=== PATIENT | male | born 1945 | race Caucasian/White ===

== ENCOUNTER 2018-04-12 16:17 | Emergency (ER) | payer OTHER ==
[2018-04-12] MEDS ORDERED: TDAP ADULT 0.5 ML INJ (BOOSTRIX) IM ONE (16:51)
--- NOTE | 2018-04-12 17:49 | EDPHY ---
H & P Time Seen by Provider: 04/12/18 16:25 HPI/ROS: HPI Right forearm laceration. 73-year-old male by private vehicle. He is right-hand dominant. He was coming down from a step ladder while helping his friend having an [place] flag. He slipped and his arm got caught on a sharp edge of the ladder. He suffered an elliptical skin tear type laceration to the mid ventral forearm. He cannot remember the last time he had a tetanus shot. He describes elapsed duration is superficial. No distal weakness or loss of sensation. He did not hit his head. No neck pain. No extremity pain. No other complaint. ROS: Constitutional: No fever, no chills. No weakness. Musculoskeletal: No back pain. No neck pain. As above. Skin: As above. Neurological: No headache. No focal weakness or altered sensation. Past medical history: Hypertension. Social history: Nonsmoker. Here by himself. No alcohol. Physical Exam: General Appearance: Alert, no distress. This patient is responding to questions appropriately and in full sentences. This patient appears well- hydrated and well-nourished. Head: Normocephalic atraumatic. Eyes: Pupils equal and round no pallor or injection. No lid edema, erythema or injection. Right upper extremity exam: Significant for a 6 cm elliptical laceration/skin tear to the fascial but not deeper, mid ventral right forearm. There is macerated skin and subcutaneous tissue as well as some skin loss. The flexor digitorum superficialis and flexor digitorum profundus tendon function is intact. Please see wound care note for further details. The right upper extremity is neurovascularly intact. Neurological: Motor sensory function is grossly intact. Cranial nerves are normal. Gait is normal. Skin: Warm and dry, no rashes. As above. Extremities are symmetrical. All joints range without pain or impingement. Psychiatric: No agitation. No depression. Database: EKG: Imaging: Procedures: Procedure: Laceration repair. Verbal consent was obtained from the patient. The 6 sent laceration on the right ventral mid forearm was anesthetized in the usual fashion. The wound was irrigated, draped and explored to its base with a gloved finger. There were no deep structures involved. No tendon injury was identified. No foreign body was identified. The wound was repaired with 13, 4.0 Ethilon sutures placed in interrupted fashion. The wound repair was tolerated well and there were no complications. The procedure was performed by myself. Emergency department course: The patient was administered Boostrix. Vital signs reviewed. After suture repair, wound care was discussed. Follow-up and return to emergency department precautions reviewed. Infection precautions reviewed. All of his questions were answered. He was discharged in good condition. Differential Diagnosis: The differential diagnosis on this patient includes but is not limited to isolated right ventral mid forearm laceration and skin tear. Tendon laceration , significant neurovascular injury, retained foreign body unlikely. This represents a partial list of diagnoses considered. These considerations are based on history, physical exam, past history, reassessment and diagnostic testing. Smoking Status: Never smoked Constitutional: Initial Vital Signs Temperature (C) 36.5 C 04/12/18 16:21 Heart Rate 78 04/12/18 16:21 Respiratory Rate 16 04/12/18 16:21 Blood Pressure 154/85 H 04/12/18 16:21 O2 Sat (%) 97 04/12/18 16:21 O2 Delivery Mode Room Air Allergies/Adverse Reactions: No Known Allergies Allergy (Unverified 04/12/18 16:19) Home Medications: Medication Instructions Recorded Coar 04/12/18 Medical Decision Making - Data Points Medications Given: Discontinued Medications Diphtheria/Tetanus/Acell Pertussis (Boostrix) 0.5 ml IM .ONCE ONE Stop: 04/12/18 16:52 Last Admin: 04/12/18 16:57 Dose: 0.5 ml Departure - Departure Disposition: Home, Routine, Self-Care Clinical Impression: Laceration of right forearm Condition: Good Instructions: Laceration (ED), Care For Your Stitches (ED) Additional Instructions: Read and follow provided instructions. Sutures are to be removed in 12-14 days. You can come back here to have that done. Follow-up with your primary care physician in 3 days for re-evaluation and wound check. Ibuprofen dosin mg every 6 hours with meals for the next 3 days only. Take only as needed for pain. Return to the emergency department for discoloration of the wound area, worsening pain, redness or swelling, any drainage of pus or other serious concerns. Referrals: Nirmal Espinoza MD [Primary Care Provider] - As per Instructions
[2018-04-12 18:06] VITALS: BP 146/81
== END 2018-04-12 18:05 | disposition home or self-care (01) ==
PROC: 0HQBXZZ Repair Right Upper Arm Skin, External Approach (ICD-10-PCS; principal; 2018-04-12)
DX: S51.811A Laceration without foreign body of right forearm, initial encounter (principal); I10 Essential (primary) hypertension; Z23 Encounter for immunization; W26.8XXA Contact with other sharp object(s), not elsewhere classified, initial encounter; Y99.8 Other external cause status; Y93.89 Activity, other specified